=== PATIENT | female | born 1955 | race Caucasian/White ===

== ENCOUNTER 2016-03-05 13:44 | Outpatient (CLI) | payer BC | END 2016-03-05 23:59 | disposition home or self-care (01) | LOC: WOU 13:44 | PROVIDERS: ATTEND Podiatrist Foot & Ankle Surgery | DX: E11.621 Type 2 diabetes mellitus with foot ulcer (principal); Z79.84 Long term (current) use of oral hypoglycemic drugs; L97.513 Non-pressure chronic ulcer of other part of right foot with necrosis of muscle; L97.514 Non-pressure chronic ulcer of other part of right foot with necrosis of bone; B35.1 Tinea unguium; E11.610 Type 2 diabetes mellitus with diabetic neuropathic arthropathy; I10 Essential (primary) hypertension; Z83.3 Family history of diabetes mellitus; L03.115 Cellulitis of right lower limb | CPT/HCPCS: 11042; A6402 ==

== ENCOUNTER 2016-03-15 13:55 | Outpatient (CLI) | payer BC | END 2016-03-15 23:59 | disposition home or self-care (01) | LOC: WOU 13:55 | PROVIDERS: ATTEND Podiatrist Foot & Ankle Surgery | DX: E11.621 Type 2 diabetes mellitus with foot ulcer (principal); L97.511 Non-pressure chronic ulcer of other part of right foot limited to breakdown of skin; E11.610 Type 2 diabetes mellitus with diabetic neuropathic arthropathy; E11.42 Type 2 diabetes mellitus with diabetic polyneuropathy | CPT/HCPCS: 11042; A6402 ==

== ENCOUNTER 2016-03-26 13:22 | Outpatient (CLI) | payer BC | END 2016-03-26 23:59 | disposition home or self-care (01) | LOC: WOU 13:22 | PROVIDERS: ATTEND Podiatrist Foot & Ankle Surgery | DX: Z47.81 Encounter for orthopedic aftercare following surgical amputation (principal); Z89.421 Acquired absence of other right toe(s); E11.610 Type 2 diabetes mellitus with diabetic neuropathic arthropathy; Z79.84 Long term (current) use of oral hypoglycemic drugs; I10 Essential (primary) hypertension; Z79.899 Other long term (current) drug therapy | CPT/HCPCS: G0463 ==

== ENCOUNTER 2016-04-26 12:50 | Outpatient (CLI) | payer BC | END 2016-04-26 23:59 | disposition home or self-care (01) | LOC: WOU 12:50 | PROVIDERS: ATTEND Podiatrist Foot & Ankle Surgery | DX: E11.610 Type 2 diabetes mellitus with diabetic neuropathic arthropathy (principal); E11.42 Type 2 diabetes mellitus with diabetic polyneuropathy; L60.3 Nail dystrophy; Z89.411 Acquired absence of right great toe; L84 Corns and callosities | CPT/HCPCS: G0463 ==